=== PATIENT | male | born 2000 | race Caucasian/White ===

== ENCOUNTER 2021-03-15 01:58 | Emergency (ER) | payer BC, SELFPAY ==
[2021-03-15 02:03] VITALS: BP 120/67; PULSE 106; RESP 18; TEMP 37.6; O2SAT 97; BMI 17.3
--- NOTE | 2021-03-15 02:08 | XRR_ITS ---
PROCEDURE INFORMATION: Exam: XR Chest Exam date and time: 03/15/2021 2:08 AM Age: 20 years old Clinical indication: Cough and wheezing; Patient HX: Cough with wheezing. TECHNIQUE: Imaging protocol: XR of the chest. Views: 1 view. COMPARISON: No relevant prior studies available. FINDINGS: Lungs: Unremarkable. No consolidation. Pleural spaces: Unremarkable. No pleural effusion. No pneumothorax. Heart/Mediastinum: Unremarkable. No cardiomegaly. Bones/joints: Unremarkable. XR/XR chest 1V portable [id number] IMPRESSION: No acute findings. Radiation Dose CTDIVOL = (mGy): DLP = (mGy-cm)
--- NOTE | 2021-03-15 02:12 | ED_ITS ---
HPI - Allergic Reaction General: Chief complaint: Allergic Reaction Stated complaint: Allergic Reaction Time Seen by Provider: 03/15/21 02:00 Source: patient Mode of arrival: ambulatory Limitations: no limitations History of Present Illness: HPI narrative: 20-year-old male states that he has been having a rash throughout the whole day. He is at [employer] and mother states that they have been burning. He has been around a bunch of trees last 2 days and he is allergic to many different things. He has had full body rash that the day with no improvement to Benadryl he does have a past urticarial rash he denies any shortness of breath or wheezing or stridor denies any worsening improving factors. He has had a slight cough for the last 2 days Associated symptoms: Deny abdominal pain, nausea or vomiting Review of Systems Const: Denies: fever(s), chills, body aches or change in appetite Eyes: Denies: blurry vision or eye discomfort ENMT: Denies: throat pain or dental pain Card: Denies: chest pain Resp: Reports: non-productive cough GI: Denies: abdominal pain, nausea, vomiting or diarrhea : Denies: dysuria Musc: Denies: neck pain or back pain Skin/Breast: Reports: rash Neuro: Denies: headache(s) Psych: Denies: depression Leon/Lymph: Denies: easy bruising All/Imm: Denies: urticaria Physical Exam Const: COMMON NORMALS: no acute distress, patient oriented x3 and healthy appearing HENMT: COMMON NORMALS: normocephalic and atraumatic HEAD & SCALP: normocephalic and atraumatic OTHER: no throat swelling Eye: COMMON NORMALS: Equal, round and reactive pupils present and EOMs intact bilaterally PUPIL: Yes Equal, round and reactive pupils present Neck/C-Spine: COMMON NORMALS: full ROM and supple Chest: COMMONS NORMALS: normal inspection of the chest and normal palpation of entire chest wall Resp: COMMON NORMALS: normal respiratory effort, No retractions, No use of accessory muscles and clear to auscultation bilaterally AUSCULTATION: clear to auscultation bilaterally Cardio: COMMON NORMALS: regular rate, regular rhythm and No murmurs present (Cardio) RATE: regular rate RHYTHM: regular rhythm GI: COMMON NORMALS: Normal to inspection, nondistended, normoactive bowel sounds present, Soft to palpation, non-tender and no masses PALPATION: Yes Soft to palpation Extremity: COMMON NORMALS: normal to inspection and full ROM Neuro: COMMON NORMALS: patient oriented x3, moves all extremities and no focal motor deficits Psych: COMMON NORMALS: mental status grossly normal, Normal thought process present and cooperative THOUGHT PROCESS: Normal thought process present Skin: COMMON NORMALS: no wounds NARRATIVE SKIN EXAM: urtivarial rash to full body Course Vital Signs: Vital signs: Vital Signs Temperature 99.4 F 03/15/21 04:08 Pulse Rate 99 03/15/21 04:08 Respiratory Rate 16 03/15/21 04:08 Blood Pressure 106/47 03/15/21 04:08 Pulse Oximetry 94 03/15/21 04:08 MDM - Allergic Reaction MDM Narrative: Medical decision making narrative: Patient presents with allergic reaction with urticaria that is improving here will prescribe him prednisone and EpiPen patient did have a low-grade fever here and a cough patient is positive for influenza A will prescribe Tamiflu he is stable for discharge return if worsening. Lab Data: Labs: Lab Results 03/15/21 03/15/21 03/15/21 03:20 04:00 04:00 Influenza Type A A g Positive H (Negative) Influenza Type B A g Negative (Negative) SARS-CoV-2 Ag (Rap id) Negative (Negative) Group A Strep Rapi d Negative (Negative) Discharge Plan Discharge Patient Disposition: Home Clinical Impression: Urticaria, Allergic reaction Condition: Stable Prescriptions: New EpiPen 2-Klaus 0.3 mg/0.3 mL auto-injector 0.3 mg IM Q20M PRN (Reason: anaphylaxis) Qty: 2 RF: 0 prednisone 50 mg tablet 50 mg PO DAILY Qty: 5 RF: 0 Tamiflu 75 mg capsule 75 mg PO BID 5 Days Qty: 10 RF: 0 Discharge Orders: Discharge ED (Routine); Ordered 03/15/21 Ordered By: Miles Hoang Discharge Diet: Advance as tolerated Discharge Activity: Resume usual activity Patient Instructions: Urticaria (ED), Influenza (ED) Coding Level of Care Code ED Side Seam 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
[2021-03-15] MEDS: EPINEPHrine 1 mg/mL INJ 0.5 MG IM (02:16)
[2021-03-15] MEDS: diphenhydrAMINE 50 mg/mL SDV 1mL IVP (02:16)
[2021-03-15] MEDS: famotidine 20 mg/2 mL INJ 40 MG IVP (02:25)
[2021-03-15] MEDS: ondansetron 2 mg/ML SDV 2 mL 4 MG IVP (02:39)
[2021-03-15] MEDS: acetaminophen 500 mg Tablet 1000 MG PO (02:57)
[2021-03-15 03:51] LABS: SARS Covid-2 Antigen Negative (Negative)
[2021-03-15] MEDS: sodium chloride 0.9% 1,000 ML 999 ML IV (04:03)
[2021-03-15 04:08] VITALS: BP 106/47; PULSE 99; RESP 16; TEMP 37.4; O2SAT 94
[2021-03-15 04:14] LABS: Rapid Strep A Test Negative (Negative)
[2021-03-15 04:27] LABS: Influenza A by IFA Positive (Negative); Influenza B by IFA Negative (Negative)
[2021-03-15 05:00] VITALS: PULSE 96; RESP 16; O2SAT 94
== END 2021-03-15 05:01 | disposition home or self-care (01) ==
PROVIDERS: Emergency Provider Emergency Medicine
DX: L50.0 Allergic urticaria (principal); T78.40XA Allergy, unspecified, initial encounter; X58.XXXA Exposure to other specified factors, initial encounter
CPT/HCPCS: 71045; 87081; 87426; 87804; 87880; 96361; 96372; 96374; 96375; 99284; J0171; J1200; J2405; J2930; J3490; J7030